=== PATIENT | male | born 1980 | race Caucasian/White ===

== ENCOUNTER 2022-10-21 11:47 | Emergency (ER) | payer BC ==
[2022-10-21] MEDS ORDERED: Sodium Chloride 0.9% 10 ML Syringe FLUSH PRN (12:10)
[2022-10-21] MEDS: Sodium Chloride 0.9% 1,000 ML IV SCH (12:19)
[2022-10-21 12:28] VITALS: PULSE 79
[2022-10-21 13:04] LABS: ANION GAP 8.6 meq/L (7-15); CHLORIDE,CL 105 mmol/L (98-107); SODIUM,NA 140 mmol/L (136-145)
[2022-10-21 13:05] LABS: ESTIMATED GFR 107 mL/min (>=60)
[2022-10-21 18:24] VITALS: BP 157/95
== END 2022-10-21 13:37 | disposition home or self-care (01) ==
LOC: LL.ED 11:47
DX: S46.812A Strain of other muscles, fascia and tendons at shoulder and upper arm level, left arm, initial encounter (principal); F17.210 Nicotine dependence, cigarettes, uncomplicated; Z91.018 Allergy to other foods; Z86.73 Personal history of transient ischemic attack (TIA), and cerebral infarction without residual deficits; X50.0XXA Overexertion from strenuous movement or load, initial encounter
CPT/HCPCS: 36415; 71046; 80053; 82550; 84484; 85025; 93005; 93010; 96360; 99284; 99284-25; J7030